=== PATIENT | male | born 1935 | race Caucasian/White ===

== ENCOUNTER 2019-09-06 04:57 | Day surgery (SDC) | payer MEDICARE, BC ==
[2019-09-01 09:54] LABS: EOSINOPHILS # (AUTO) 0.1 X10'3 (0-0.9); MONOCYTES # (AUTO) 0.2 X10'3 (0-0.9)
[2019-09-01 09:55] LABS: BASOPHILS % (AUTO) 0.6 % (0-1); EOSINOPHILS % (AUTO) 1.1 % (0-6); HEMATOCRIT 41.1 % (42.0-52.0); HEMOGLOBIN 13.6 g/dl (14.0-17.9); LYMPHOCYTES # (AUTO) 5.9 X10'3 (1.1-4.8); LYMPHOCYTES % (AUTO) 66.4 % (21-51); MEAN CORPUSCULAR HGB CONC 33.1 g/dL (33.0-36.5); MEAN CORPUSCULAR VOLUME 90.6 FL (78-98); MEAN PLATELET VOLUME 8.1 FL (7.4-10.4); MONOCYTES % (AUTO) 2.5 % (2-12); NEUTROPHILS # (AUTO) 2.6 X10'3 (1.8-7.7); NEUTROPHILS % (AUTO) 29.4 % (42-75); PLATELET COUNT 110 X10'3 (140-440); RED BLOOD COUNT 4.54 X10'6 (4.70-6.10); WHITE BLOOD COUNT 8.9 X10'3 (4.5-11.0)
[2019-09-01 10:06] LABS: ALBUMIN 3.8 G/DL (3.4-5.0); ANION GAP 7 (8-16); BLOOD UREA NITROGEN 29 MG/DL (7-18); BUN/CREATININE RATIO 21.6 (5.4-32.0); CHLORIDE 106 MMOL/L (99-107); CREATININE 1.34 MG/DL (0.60-1.10); GLUCOSE 129 MG/DL (70-104); PARTIAL THROMBOPLASTIN TIME 27 SECONDS (22-32); POTASSIUM 4.4 MMOL/L (3.5-5.1); SODIUM 145 MMOL/L (135-145); TOTAL CARBON DIOXIDE 31.9 MMOL/L (24-32); eGFR 51 ML/MIN
[2019-09-06] VITALS (9 sets, daily range): BP systolic 108–152; BP diastolic 53–86
[~2019-09-06] VITALS: Ht 180.3 cm; Wt 84.5 kg
[2019-09-06] MEDS ORDERED: LORazepam 0.5 MG tablet PO PRN (05:20)
[2019-09-06] MEDS ORDERED: diphenhydrAMINE 25mg capsule PO PRN (05:20)
[2019-09-06] MEDS ORDERED: normal saline 1,000 ML IV SCH (05:20)
[2019-09-06] MEDS ORDERED: POTA10TA36 PO (05:47)
[2019-09-06] MEDS ORDERED: APIX5TAB3 PO (05:47)
[2019-09-06] MEDS ORDERED: METO-539 PO (05:47)
[2019-09-06] MEDS ORDERED: ALBU8HFA PO (05:47)
[2019-09-06] MEDS ORDERED: FURO-150 PO (05:47)
[2019-09-06] MEDS ORDERED: fentaNYL/PF 50MCG/1 ML 2ML syringe ONE (05:55)
[2019-09-06] MEDS ORDERED: LIDOcaine 1% (10mg/ml)w/preservative injection 20ml MDV ONE (05:55)
[2019-09-06] MEDS ORDERED: midazolam 2 mg/2 ml injection ONE (05:55)
[2019-09-06] MEDS ORDERED: iohexol 350MG/ML 100ml bottle IV ONE (05:56)
[2019-09-06] MEDS ORDERED: HYDROcodone/acetaminophen 10/325mg tab PO PRN (07:25)
[2019-09-06] MEDS ORDERED: HYDROcodone/acetaminophen 5mg/325mg tablet PO PRN (07:25)
[2019-09-06] MEDS ORDERED: ACETYLCYSTEINE 200 MG/1 ML 4 ML ORAL SOLUTION PO SCH (08:00)
== END 2019-09-06 09:45 | disposition home or self-care (01) ==
LOC: SSTAY O 04:57
PROVIDERS: ATTEND Internal Medicine Interventional Cardiology
DX: I35.0 Nonrheumatic aortic (valve) stenosis (principal); I25.10 Atherosclerotic heart disease of native coronary artery without angina pectoris; J44.9 Chronic obstructive pulmonary disease, unspecified; E11.9 Type 2 diabetes mellitus without complications; I48.91 Unspecified atrial fibrillation; I10 Essential (primary) hypertension; Z79.01 Long term (current) use of anticoagulants; Z79.899 Other long term (current) drug therapy
CPT/HCPCS: 36415; 80048; 85025; 85610; 85730; 93005; 93458; 99152; 99153; C1769; J1644; J2001; J2250; J3010; J7030; Q0163; Q9967; A4620; A6258

== ENCOUNTER 2020-04-19 06:23 | Day surgery (SDC) | payer MEDICARE, BC ==
[~2020-04-19] VITALS: Ht 180.3 cm; Wt 78.7 kg
[~2020-04-19 06:23] MED LIST: ALBU8HFA PO; APIX5TAB3 PO; FURO-150 PO; METO-539 PO; POTA10TA36 PO
[2020-04-19] MEDS ORDERED: normal saline 1000ml 1,000 ML IV SCH ×2 (06:55→09:33)
[2020-04-19] MEDS ORDERED: SPIR25TA5 PO (07:11)
[2020-04-19] MEDS ORDERED: LISI10TA4 PO (07:12)
[2020-04-19] MEDS ORDERED: UBID200C18 PO (07:13)
[2020-04-19] MEDS ORDERED: TURM500C4 PO (07:13)
[2020-04-19 07:15] VITALS: BP 133/84
[2020-04-19 07:29] LABS: BASOPHILS % (AUTO) 0.2 % (0-1); EOSINOPHILS # (AUTO) 0.1 X10'3 (0-0.9); HEMOGLOBIN 12.7 g/dl (14.0-17.9); MEAN CORPUSCULAR HEMOGLOBIN 29.9 PG (27.0-31.0); MONOCYTES # (AUTO) 0.2 X10'3 (0-0.9); RED BLOOD COUNT 4.26 X10'6 (4.70-6.10); WHITE BLOOD COUNT 9.6 X10'3 (4.5-11.0)
[2020-04-19 07:31] LABS: EOSINOPHILS % (AUTO) 1.3 % (0-6); HEMATOCRIT 39.2 % (42.0-52.0); LYMPHOCYTES # (AUTO) 7.3 X10'3 (1.1-4.8); LYMPHOCYTES % (AUTO) 75.9 % (21-51); MEAN CORPUSCULAR HGB CONC 32.5 g/dL (33.0-36.5); MEAN PLATELET VOLUME 7.7 FL (7.4-10.4); MONOCYTES % (AUTO) 1.8 % (2-12); NEUTROPHILS % (AUTO) 20.8 % (42-75); PLATELET COUNT 95 X10'3 (140-440); RED CELL DISTRIBUTION WIDTH 16.9 % (11.5-14.5)
[2020-04-19] MEDS ORDERED: iohexol 300 MG/1 ML 50ml polymer ONE (08:23)
[2020-04-19] MEDS ORDERED: LIDOcaine 1%/PF 5ML 10 MG/ML VIAL ONE (08:23)
[2020-04-19] MEDS ORDERED: fentaNYL/PF 50MCG/1 ML 2ML syringe ONE (08:31)
[2020-04-19] MEDS ORDERED: midazolam 2 mg/2 ml injection ONE (08:31)
[2020-04-19 09:35] LABS: TOTAL CELLS COUNTED 100
[2020-04-19 09:36] LABS: ANISOCYTOSIS 1+; PLATELET ESTIMATE DECREASED; SMUDGE CELLS 1+
[2020-04-19 09:43] VITALS: BP 142/72
[2020-04-19 10:00] VITALS: BP 130/85
[2020-04-19 10:15] VITALS: BP 132/61
[2020-04-19 10:30] VITALS: BP 137/71
== END 2020-04-19 10:55 | disposition home or self-care (01) ==
LOC: SSTAY O 06:23
PROVIDERS: ATTEND Radiology Diagnostic Radiology
DX: K74.60 Unspecified cirrhosis of liver (principal); K74.0 Hepatic fibrosis; Z79.899 Other long term (current) drug therapy; Z79.01 Long term (current) use of anticoagulants; Z20.828 Contact with and (suspected) exposure to other viral communicable diseases
CPT/HCPCS: 36415; 37200; 75885; 75970; 85025; 85610; 87635; 99152; 99153; C1769; C1894; C2625; J2250; J3010; J7030; Q9967; 85007